=== PATIENT | male | born 1950 | race Two or more races ===

== ENCOUNTER 2016-07-09 16:06 | Inpatient (IN) | payer OTHER ==
[~2016-07-09] VITALS: Ht 175.3 cm; Wt 81.7 kg
[2016-07-09 21:25] VITALS: BP 117/71
[2016-07-09] MEDS ORDERED: PRAV20TA3 PO (21:57)
[2016-07-09] MEDS ORDERED: HYDR-2652 PO (21:57)
[2016-07-09] MEDS ORDERED: ISOS30TA4 PO (21:57)
[2016-07-09] MEDS ORDERED: PANT40TA2 PO (21:57)
[2016-07-09] MEDS ORDERED: MONT5CHW17 PO (21:57)
[2016-07-09] MEDS ORDERED: ASPI-231 PO (21:57)
[2016-07-09] MEDS ORDERED: PRAS10TA6 PO (21:57)
[2016-07-09] MEDS ORDERED: [UNRECOGNIZED DRUG - CODE] PO (21:57)
[2016-07-09] MEDS ORDERED: ALBU0.084 NEB (21:58)
[2016-07-09 22:00] VITALS: BP 117/71
[2016-07-09] MEDS ORDERED: SODIUM CHLORIDE 0.9% 1,000 ML IV SCH (22:04)
[2016-07-09] MEDS ORDERED: ONDANSETRON HCL 4 MG/2 ML VIAL IV PRN (22:15)
[2016-07-09] MEDS ORDERED: NITROGLYCERIN 0.4 MG SL TAB SL PRN (22:15)
[2016-07-09] MEDS ORDERED: MORPHINE SULF INJ 2 MG/ML SYRINGE 1ML IV PRN ×2 (22:15)
[2016-07-09] MEDS ORDERED: ENOXAPARIN SOD 100 MG/1 ML SYRINGE SC ONE (22:30)
[2016-07-10] MEDS: ALBUTEROL SULF 2.5 MG/0.5ML(0.5%) NEB SOLN NEB SCH ×4 (00:38→19:35)
[2016-07-10] MEDS: IPRATROPIUM BROM 0.5 MG/2.5ML INH SOL NEB SCH ×4 (00:38→19:35)
[2016-07-10 05:00] VITALS: BP 111/73
[2016-07-10] MEDS ORDERED: ENOXAPARIN SOD 80 MG/0.8ML SYRINGE SC ONE (05:30)
[2016-07-10 06:32] LABS: Basophils # (auto) 0.2 uL; Basophils % (auto) 1.7 % (0.0-2.0); Eosinophils # (auto) 0.1 uL; Hematocrit 46.7 % (41.0-53.0); Hemoglobin 14.9 g/dL (13.5-17.5); Lymphocytes # (auto) 1.9 uL; Lymphocytes % (auto) 17.7 % (10.0-50.0); Mean Corpuscular Hemoglobin 28.5 pg (28.0-32.0); Mean Corpuscular Hgb Conc. 31.9 g/dL (32.0-36.0); Mean Corpuscular Volume 89.2 fL (80.0-100.0); Mean Platelet Volume 8.8 fL (7.4-10.4); Monocytes # (auto) 0.7 uL; Monocytes % (auto) 6.9 % (0.0-12.0); Neutrophils # (auto) 7.7 uL; Neutrophils % (auto) 72.7 % (37.0-80.0); Platelet Count (auto) 203 10^3/uL (140-450); Red Cell Distribution Width 13.6 % (11.6-16.0); White Blood Cell 10.6 10^3/uL (4.4-10.8)
[2016-07-10 07:22] LABS: Albumin 2.6 g/dL (3.4-5.0); Calcium 7.9 mg/dL (8.5-10.1); Potassium 3.4 mmol/L (3.5-5.1)
[2016-07-10] MEDS ORDERED: IODIXANOL 320MG/ML 100ML BTL IV ONE (07:23)
[2016-07-10 07:24] LABS: Bilirubin, Total 0.6 mg/dL (0.2-1.0); Total Protein 5.5 g/dL (6.4-8.2)
[2016-07-10] MEDS ORDERED: LIDOCAINE 2%HCL (LOCAL ANESTH.) INJ 20ML MDV ONE (07:24)
[2016-07-10] MEDS ORDERED: SOD CHL 0.45% 1,000 ML IV SCH (08:00)
[2016-07-10] MEDS: SOD CHL 0.45% 1,000 ML IV SCH (08:15)
[2016-07-10 09:00] VITALS: BP 119/77
[2016-07-10 09:10] LABS: Partial Thromboplastin Time 29.5 sec (22.64-33.71); Prothrombin Time 12.2 sec (9.37-12.3)
[2016-07-10 09:23] LABS: INR 1.18 (0.9-1.15)
[2016-07-10] MEDS ORDERED: POTASSIUM CHL 20 Meq TABLET PO ONE (09:30)
[2016-07-10] MEDS ORDERED: PATIENTS OWN MEDICATION (Isosorbide Mononitrate (Isosorbide Mononitrate Er) 30 MG) PO SCH (10:00)
[2016-07-10] MEDS ORDERED: PRAVASTATIN SODIUM 20 MG TAB PO SCH (10:00)
[2016-07-10] MEDS ORDERED: PATIENTS OWN MEDICATION (Montelukast Sodium (Singulair) 10 MG) PO SCH ×2 (10:00)
[2016-07-10] MEDS ORDERED: VERAPAMIL HCL 240 MG PO SCH (10:00)
[2016-07-10] MEDS: ASPirin-EC 81 mg tab PO SCH (10:06)
[2016-07-10] MEDS: PANTOPRAZOLE 40 MG TAB PO SCH (10:07)
[2016-07-10] MEDS: MONTELUKAST SODIUM 10 MG TAB PO SCH (10:07)
[2016-07-10] MEDS: ISOSORBIDE MONONITRATE 60 MG TAB PO SCH (10:07)
[2016-07-10] MEDS: VERAPAMIL HCL 120 mg ER tab PO SCH (10:08)
[2016-07-10 11:10] VITALS: BP 119/77
[2016-07-10 12:39] LABS: Urine Bilirubin Negative (Negative); Urine Blood Negative /uL (Negative); Urine Color Yellow (Yellow); Urine Glucose Normal (Normal); Urine Ketone Negative (Negative); Urine Nitrite Negative (Negative); Urine RBC <1 /hpf (0 - 3); Urine Urobilinogen Normal (Negative); Urine pH 5.5 (5.0-8.0)
[2016-07-10 13:00] VITALS: BP 112/73
[2016-07-10] MEDS ORDERED: SODIUM CHL 0.9% 0 ML ONE (15:56)
[2016-07-10] MEDS ORDERED: fentaNYL CITRATE 100 MCG/2 ML VL ONE (15:56)
[2016-07-10] MEDS ORDERED: MIDAZOLAM HCL 1MG/1ML-2 ML VIAL ONE (15:56)
[2016-07-10] MEDS ORDERED: ANGIOMAX 250 MG VIAL IV ONE (15:56)
[2016-07-10] MEDS ORDERED: EPTIFIBATIDE INJ (2MG/ML) 10ML VIAL IV ONE (15:57)
[2016-07-10] MEDS ORDERED: CLOPIDOGREL BISULFATE 75 MG TAB ONE (16:37)
[2016-07-10] MEDS ORDERED: cefTRIAXone 1GM/50ML D5W 50 ML IV ONE (17:00)
[2016-07-10] MEDS ORDERED: guaiFENesin-DEXTROMETHORPHAN 5ML SYR PO PRN (17:15)
[2016-07-10] MEDS: metroNIDAZOLE 500MG/100ML 100 ML IV SCH (21:51)
[2016-07-10 22:00] VITALS: BP 132/71
[2016-07-11] MEDS: ALBUTEROL SULF 2.5 MG/0.5ML(0.5%) NEB SOLN NEB SCH (00:15)
[2016-07-11] MEDS: IPRATROPIUM BROM 0.5 MG/2.5ML INH SOL NEB SCH (00:15)
[2016-07-11] MEDS: SOD CHL 0.45% 1,000 ML IV SCH (04:56)
[2016-07-11 05:00] VITALS: BP 129/72
[2016-07-11] MEDS: metroNIDAZOLE 500MG/100ML 100 ML IV SCH (05:46)
[2016-07-11 06:00] LABS: Basophils # (auto) 0 uL; Basophils % (auto) 0.1 % (0.0-2.0); Eosinophils # (auto) 0.1 uL; Eosinophils % (auto) 1.6 % (0.0-7.0); Hematocrit 43.1 % (41.0-53.0); Lymphocytes # (auto) 1.6 uL; Mean Corpuscular Hemoglobin 28.9 pg (28.0-32.0); Mean Corpuscular Hgb Conc. 32.6 g/dL (32.0-36.0); Mean Corpuscular Volume 88.8 fL (80.0-100.0); Mean Platelet Volume 8.8 fL (7.4-10.4); Monocytes % (auto) 11.4 % (0.0-12.0); Neutrophils # (auto) 6.1 uL; Neutrophils % (auto) 68.9 % (37.0-80.0); Platelet Count (auto) 196 10^3/uL (140-450); Red Cell Distribution Width 14.8 % (11.6-16.0); White Blood Cell 8.8 10^3/uL (4.4-10.8)
[2016-07-11 06:13] LABS: BUN/Creatinine Ratio 22.4; Calcium 7.5 mg/dL (8.5-10.1); Potassium 3.5 mmol/L (3.5-5.1)
[2016-07-11 08:52] VITALS: BP 137/77
[2016-07-11 09:00] VITALS: BP 126/77
[2016-07-11] MEDS ORDERED: cefTRIAXone 1GM/50ML D5W 50 ML IV SCH (09:00)
[2016-07-11] MEDS ORDERED: CLOPIDOGREL BISULFATE 75 MG TAB PO SCH (10:00)
[2016-07-11] MEDS: VERAPAMIL HCL 120 mg ER tab PO SCH (10:15)
[2016-07-11] MEDS: MONTELUKAST SODIUM 10 MG TAB PO SCH (10:15)
[2016-07-11] MEDS: ASPirin-EC 81 mg tab PO SCH (10:15)
[2016-07-11] MEDS: PANTOPRAZOLE 40 MG TAB PO SCH (10:16)
[2016-07-11] MEDS: ISOSORBIDE MONONITRATE 60 MG TAB PO SCH (10:16)
[2016-07-11] MEDS ORDERED: PRAVASTATIN SODIUM 20 MG TAB PO SCH (22:00)
== END 2016-07-11 13:29 | disposition home or self-care (01) | DRG 280 ==
LOC: WEST WING 21:11 → TELE-WESTW 23:36
PROVIDERS: ADMIT Specialist; ATTEND Family Medicine
PROC: 4A023N7 Measurement of Cardiac Sampling and Pressure, Left Heart, Percutaneous Approach (ICD-10-PCS; principal; 2016-07-09)
PROC: B2111ZZ Fluoroscopy of Multiple Coronary Arteries using Low Osmolar Contrast (ICD-10-PCS; 2016-07-09)
PROC: B2151ZZ Fluoroscopy of Left Heart using Low Osmolar Contrast (ICD-10-PCS; 2016-07-09)
PROC: B41J1ZZ Fluoroscopy of Other Lower Arteries using Low Osmolar Contrast (ICD-10-PCS; 2016-07-09)
DX: I21.4 Non-ST elevation (NSTEMI) myocardial infarction (principal); E43 Unspecified severe protein-calorie malnutrition; J96.10 Chronic respiratory failure, unspecified whether with hypoxia or hypercapnia; I10 Essential (primary) hypertension; E78.5 Hyperlipidemia, unspecified; J45.909 Unspecified asthma, uncomplicated; J44.9 Chronic obstructive pulmonary disease, unspecified; I25.10 Atherosclerotic heart disease of native coronary artery without angina pectoris; K21.9 Gastro-esophageal reflux disease without esophagitis; Z95.5 Presence of coronary angioplasty implant and graft; Z95.0 Presence of cardiac pacemaker
CPT/HCPCS: 36415; 80048; 80053; 81001; 83735; 84484; 85025; 85610; 85730; 87081; 93458; 94640; 99152; J0696; J2250; J3490; Q9967